=== PATIENT | female | born 2000 | race Native Hawaiian/Other Pacific Islander ===

== ENCOUNTER 2020-10-02 10:08 | Emergency (ER) | payer MEDICAID ==
[~2020-10-02] VITALS: Ht 175.3 cm; Wt 110.2 kg
[2020-10-02 10:14] VITALS: Ht 175.3 cm; Wt 110.2 kg
[2020-10-02 12:43] VITALS: BP 119/75
== END 2020-10-02 12:43 | disposition home or self-care (01) ==
LOC: ED 10:08
DX: N64.4 Mastodynia (principal); R07.89 Other chest pain